=== PATIENT | female | born 2000 | race Caucasian/White ===

== ENCOUNTER 2023-12-21 13:15 | Emergency (ER) | payer OTHER, SELFPAY ==
[2023-12-21 13:22] VITALS: BP 118/72; PULSE 99; TEMP 36.7; O2SAT 99; BMI 19.8
[2023-12-21 13:25] VITALS: PULSE 92
--- NOTE | 2023-12-21 14:10 | ED.ARRPALP1 ---
HPI - Arrhythmia/Palpitations General Chief Complaint: Arrhythmia/Palpitations Stated Complaint: CHEST PAIN Time Seen by Provider: 12/21/23 14:02 Source: patient and family Mode of arrival: Wheelchair Limitations: no limitations History of Present Illness HPI narrative: This patient is here for evaluation of palpitations. She has been doing a different emergency room twice with the symptoms first visit here. She presented some of the information from her previous visit stating that they did blood test. She is and is under the care of Dr. Manning PLANT CYTOLOGIST. She is scheduled to see him on the . She has had ultrasounds during this and everything's been fine. She does not have any abdominal cramping or vaginal bleeding or obstetrical related complaints. She has no rheumatic fever or heart disease. She said that when she is a baby her mother told her she had a heart murmur but she believes she grew out of it. She has never been referred to a e marketing specialist. She showed me her smart phone and in fact she is having a very minimal arrhythmia with some what appear to be premature atrial contractions with no ventricular ectopy or malignant arrhythmia on her phone. She is otherwise been fine she has been eating and drinking she denies any excessive caffeine intake or other supplements. She is not on any cough or cold medications. She does take iron supplements at the request of her PLANT CYTOLOGIST. Patient had a CTA of her chest done at that other institution 2 days ago. It was normal Related Data Home Medications ?Medication ?Instructions ?Recorded ?Confirmed ferrous sulfate 325 mg (65 mg 325 mg PO DAILY 12/21/23 12/21/23 iron) tablet (Feosol) Allergies Allergy/AdvReac Type Severity Reaction Status Date / Time erythromycin base AdvReac Mild Verified 12/21/23 13:22 minocycline AdvReac Mild Verified 12/21/23 13:22 Exam Narrative Exam Narrative: Awake alert pleasant oriented x 3 excellent historian vital signs are stable. 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 She did show me her smart phone that showed PACs. Examination of her chest shows her lungs to be clear with no wheeze rales or rhonchi there is no respiratory distress her pulse oximetry is normal. Heart sounds are normal at several listening posts with no click rub gallop or murmur. Palpation of her neck discloses no thyromegaly or adenitis. She is gravid and we will get heart tones on her while here. Her extremities showed no evidence of peripheral edema phlebitis or edema. Constitutional Vital Signs, click to edit/add: Last Vital Signs Temp 98.1 F 12/21/23 13:22 Pulse 99 H 12/21/23 13:22 Resp 18 12/21/23 13:22 BP 118/72 12/21/23 13:22 Pulse Ox 99 12/21/23 13:22 O2 Del Method Room Air 12/21/23 13:22 Course Vital Signs Vital signs: Vital Signs Temperature 98.1 F 12/21/23 13:22 Pulse Rate 99 H 12/21/23 13:22 Respiratory Rate 18 12/21/23 13:22 Blood Pressure 118/72 12/21/23 13:22 Pulse Oximetry 99 12/21/23 13:22 Oxygen Delivery Method Room Air 12/21/23 13:22 Temperature 98.1 F 12/21/23 13:22 Pulse Rate 99 H 12/21/23 13:22 Respiratory Rate 18 12/21/23 13:22 Blood Pressure 118/72 12/21/23 13:22 Pulse Oximetry 99 12/21/23 13:22 Oxygen Delivery Method Room Air 12/21/23 13:22 MDM - Arrhythmia/Palpitations MDM Narrative Medical decision making narrative: We were able to receive the records from the other institution. It confirms that she had a CTA that was normal. Her hemoglobin was 9.3 otherwise her CBC was CBC was normal. Magnesium level was within normal limits and her TSH was also evaluated and also was normal. She showed no evidence of urinary tract infection. With these findings I do not believe is necessary to workup these benign arrhythmias any further. She was reassured advised to follow-up with her PLANT CYTOLOGIST. Discharge Plan Discharge Stand Alone Forms: Portal Instructions Chief Complaint: Arrhythmia/Palpitations Clinical Impression: Palpitations Patient Disposition: Home, Self-Care Time of Disposition Decision: 15:00 Prescriptions / Home Meds: No Action ferrous sulfate [Feosol] 325 mg (65 mg iron) tablet 325 mg PO DAILY Print Language: Telugu Additional Instructions: Follow-up with your PLANT CYTOLOGIST doctor as planned Referrals: Sunshine Maria NP [Primary Care Provider] - 1 week
--- NOTE | 2023-12-21 14:13 | ECG_ITS ---
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
== END 2023-12-21 15:22 | disposition home or self-care (01) ==
PROVIDERS: Emergency Provider Emergency Medicine Emergency Medical Services; PCP Nurse Practitioner Family
DX: R00.2 Palpitations (principal)
CPT/HCPCS: 36415; 80048; 84443; 84484; 93005; 99284

== ENCOUNTER 2025-08-11 18:08 | Emergency (ER) | payer OTHER, SELFPAY ==
--- OUTSIDE RECORDS SUMMARY | 2025-08-09 20:52 | XMS_ITS | Continuity of Care Document ---
Author Organization [facility] Address Unknown Care Team Providers Care Box Maker Name Role Phone Estrellita Roche Primary Care Physician Encounter [facility] [id number] Date(s): 08/09/25 - 08/09/25 [facility] [address] [place] [address]- Encounter Diagnosis Left wrist injury(Discharge Diagnosis) - 08/09/25 Discharge Disposition: Home (Routine DC) Attending Physician: Hima Berg DO Encounter Type: Emergency Allergies, Adverse Reactions, Alerts SubstanceCriticalitySeverityReactionReaction SeverityStatuserythromycinActive minocyclinehivesActive Treatment Plan Extracted from:Title:ED NoteAuthor:Hima Berg DODate:08/09/25 Left wrist injury (S69.92XA: Unspecified injury of left wrist, hand and finger(s), initial encounter) Orders: XR Hand 3+ Views Left XR Wrist 2 Views Left Addendum by Galen Moses DO on August 09, 2025 20:47:25 EST Patient signed out to me by Dr. Berg.?? X-ray of the left wrist was read as complete fusion of the carpal bones no acute osseous pathology??x-ray of the left hand shows??no acute osseous pathology.?? Discussed the findings with the patient and she is complaining of significant pain??she is concerned that she??did break something.?? We??did discuss the possibility of ligament injury and??bone contusion.?? She does want to have??the area splinted. ??States that she is going to follow-up with her orthopedic surgeon??for further management.?? We discussed taking Motrin Tylenol as needed for pain. ?? Splint note: A volar splint was placed??on the left??wrist and forearm extending from the??palmar aspect of the left metacarpals up to the mid forearm in a flexed position of comfort??to??match her??anatomy. ??Padding was initially applied.?? Area was wrapped with an Kendell wrap.?? Patient neurovascularly intact??prior to and after the procedure.?? Tolerated procedure well with no complications. ?? Patient agreed with plan, she was discharged home. Immunizations Given and Recorded VaccineDateStatusRefusal Reasonmeningococcal conjugate vaccine05/22/19Recorded meningococcal conjugate vaccine05/07/14Recordeddiphtheria/pertussis, acel/tetanus adult05/07/14Recordedhepatitis A pediatric vaccine05/07/14Recordedpoliovirus vaccine, inactivated05/13/07Recordedpoliovirus vaccine, inactivated02Recorded poliovirus vaccine, fortjqvarnf02Recordedpoliovirus vaccine, inactivated 02Recordedmeasles/mumps/rubella/varicella vaccine05/13/07RecordedHep A, unspecified formulation05/13/07RecordedDTaP, unspecified formulation05/13/07 RecordedDTaP, unspecified bbpyttnnmzb41/1/03RecordedDTaP, unspecified formulation02RecordedDTaP, unspecified yuinoeswbxc30/27/02RecordedDTaP, unspecified iivezkspobi00/9/02Recordedvaricella virus buosmvf12/1/03Recorded measles/mumps/rubella virus zolcqez74/1/03RecordedHib, unspecified formulation 06/13/03RecordedHib, unspecified formulation02RecordedHib, unspecified wicffqrjvgd58/27/02RecordedHib, unspecified diwagyvjkbw14/9/02Recordedhepatitis B pediatric vaccine02Recordedhepatitis B pediatric eqzwdnq59/9/02Recorded hepatitis B pediatric vaccine02Recorded Not Given VaccineDateStatusRefusal YavujwKTWA-NkH-9 mRNA (todoreeneran 5y-11y) vac06/15/23 Not GivenRefused by parent, guardian, or patient - rescheduleinfluenza virus vaccine, live, trivalent11/06/19Not GivenParent Or Guardian Refusesinfluenza virus vaccine, live, trivalent10/04/19Not GivenParent Or Guardian Refuses Medications aspirin Refills(s) 0 Start Date: 10/11/23 Status: Ordered Medication Dispense Status: Completed Total Allowed Fills: 1 Fills Dispensed: 0 ibuprofen 600 mg Tab 600 mg = 1 tab(s), Oral, q6hr, # 25 tab(s), Refills(s) 0, Pharmacy: [id number], 149.8, cm, 03/10/24 6:08:00 EDT, Height/Length Dosing, 50.9, kg, 03/10/24 6:08:00 EDT, Weight Dosing Start Date: 03/13/24 Status: Ordered Medication Dispense Status: Completed Quantity: 25.0 Unit: tab(s) Total Allowed Fills: 1 Fills Dispensed: 0 Indications: History of uterine scar from previous surgery; Multivitamins 1 tab(s), Oral, Daily, Refill(s) 0 Start Date: 10/11/23 Status: Ordered Medication Dispense Status: Completed Total Allowed Fills: 1 Fills Dispensed: 0 Slow Fe (as elemental iron) 45 mg oral tablet, extended release 45 mg = 1 tab(s), Oral, Daily, # 30 tab(s), Refills(s) 0 Start Date: 12/27/23 Status: Ordered Medication Dispense Status: Completed Quantity: 30.0 Unit: tab(s) Total Allowed Fills: 1 Fills Dispensed: 0 Problem List ConditionConfirmationCourseEffective DatesStatusHealth StatusInformant ArthrogryposisConfirmedResolvedBMI less than 19,adultConfirmedActiveLordosis deformity of spineConfirmedResolvedAMC (arthrogryposis multiplex congenita) MrptxwztqGxwayvLahttapwxWshuikwpj83/20/22 - 2ResolvedPregnancyConfirmed 11/30/22 - 01/2023ResolvedStrep pharyngitisConfirmedActiveTonsillitis with exudateConfirmedActive Procedures ProcedureDateRelated DiagnosisBody BdqfBxrxpzWfvssudsfvfpy92/11/24Completed sectionCompletedJoint surgeries/Muscle/Bone Surgeries related to medical diagnosisCompleted dose given @ 1506 02-22-24 Social History Social History TypeResponseSmoking StatusFormer smoker, quit more than 30 days ago; Smokeless tobacco use: Former vaping or e-cigarette use; Type: Vaping; Ready to change: No; Concerns about tobacco use in household: No; Smoking Cessation Yes1, 2 entered on: 08/14/24Birth SexFemaleSex RepresentationFemale (finding) 1Pt currently vaping [address] [place] [address] Discharge Instructions Patient Education 08/09/2025 20:38:01 Contusion Contusion A contusion is a deep bruise. Contusions are the result of a blunt injury to tissues and muscle fibers under the skin. The injury causes bleeding under the skin. The skin over the contusion may turn blue, purple, or yellow. Minor injuries will give you a painless contusion, but more severe injuriescause contusions that can stay painful and swollen for a few weeks. Follow these instructions at home: Pay attention to any changes in your symptoms. Let your health care provider know about them. Take these actions to relieve your pain. Managing pain, stiffness, and swelling ??? Use resting, icing, applying pressure (compression), and raising (elevating) the injured area. This is often called the RICE method. ??? Rest the injured area. Return to your normal activities as told by your health care provider. Ask your health care provider what activities are safe for you. ??? If directed, put ice on the injured area. To do this: ??? Put ice in a plastic bag. ??? Place a towel between your skin and the bag. ??? Leave the ice on for 20 minutes, 2???3 times a day. ??? If your skin turns bright red, remove the ice right away to prevent skin damage. The risk of skin damage is higher if you cannot feel pain, heat, or cold. ??? If directed, apply light compression to the injured area using an elastic bandage. Make sure the bandage is not wrapped too tightly. Remove and reapply the bandage as directed by your health careprovider. ??? If possible, elevate the injured area above the level of your heart while you are sitting or lying down. General instructions ??? Take tgmo-szz-rquuvug and prescription medicines only as told by your health care provider. ??? Keep all follow-up visits. Your health care provider may want to see how your contusion is healing with treatment. Contact a health care provider if: ??? Your symptoms do not improve after several days of treatment. ??? Your symptoms get worse. ??? You have difficulty moving the injured area. Get help right away if: ??? You have severe pain. ??? You have numbness in a hand or foot. ??? Your hand or foot turns pale or cold. This information is not intended to replace advice given to you by your health care provider. Make sure you discuss any questions you have with your health care provider. Document Revised: 02/15/2023 Document Reviewed: 02/15/2023 [employer] Patient Education ?? 2023 [employer]. Follow Up Care 08/09/2025 17:33:17 With:Estrellita Roche Address: [address] [place] [address] [facility] [place] [id number] [facility] (1) When:Within 3 Day(s) Physician Emergency department Note * Hima Berg DO: MODIFY, PERFORM Event Display: ED Note-Physician Authored Date: [id number] Basic Information Time Seen: Hima Berg DO ??08/09/2025 17:39 Chief Complaint pt reports a slip and fall, hurt l hand. ??states hands are turned inward at baseline. History of Present Illness 25 female presents emergency department with a trip and fall injuring her left wrist and hand.?? Patient states this occurred just prior to arrival. ??Patient also states that she has had prior fracture of the to this??area previously. ??She does describe some pain to the left wrist??and into the hand but nothing into the forearm elbow or the remainder of the extremity.?? No other associated??injuries or complaints.?? No other aggravating or relieving factors no other associated symptoms no other prior treatments or complaints. ?? Family: Reviewed and noncontributory Social: lives at home ?? Review of systems negative unless otherwise specified in the HPI. Physical Exam Vitals & Measurements T:??36.8?C(Oral)?? HR:??99(Peripheral)?? RR:??20?? BP:??117/76?? SpO2:??97%?? HT:??149??cm?? WT:??37.3??kg?? BMI:??16.8?? Vital Signs reviewed and noted.?? General: Alert, no acute distress, patient resting comfortably?? Skin: warm, intact, no pallor noted?? Head: Normocephalic, atraumatic?? Eye: Normal conjunctiva?? Cardiac: Normal peripheral perfusion Respiratory: No acute distress?? 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 Patient does have some generalized tenderness to palpation??along the??radial surface of the left wrist with some swelling noted here as well. ??Patient does guard against??palpation to the left wrist and the proximal portion of the hand??as well.?? There is some pain with range of motion about that joint. ??No tenderness to the remainder of theforearm elbow??or humerus. Neurological: alert and oriented, normal sensory and motor observed.?? Psychiatric: Cooperative Medical Decision Making X-rays??obtained and results are pending??stat rad read??given the complexity of the patient's underlying anatomy. ??Patient be signed out to the oncoming physician. 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 Former vaping or e- cigarette use Smokeless Tobacco Use:. Vaping, Ready to change: No. Household tobacco concerns: No. Yes, 08/14/2024 Former vaping or e-cigarette use Smokeless Tobacco Use:., 08/11/2023 Family History Alcoholism: Mother. Drug addiction: Mother and Grandparent. Suicide attempt: Grandparent. Lab Results No qualifying data available. Diagnostic Results No qualifying data available. Electronically Signed By: Hima Berg DO Date and Time Signed: 08/09/25 18:44 EST * Galen Moses DO: PERFORM Event Display: ED Note-Physician Authored Date: [id number] Patient signed out to me by Dr. Berg.?? X-ray of the left wrist was read as complete fusion of the carpal bones no acute osseous pathology??x-ray of the left hand shows??no acute osseous pathology.?? Discussed the findings with the patient and she is complaining of significant pain??she is concerned that she??did break something.?? We??did discuss the possibility of ligament injury and??bone contusion.?? She does want to have??the area splinted. ??States that she is going to follow-up with her orthopedic surgeon??for further management.?? We discussed taking Motrin Tylenol as needed for pain. ?? Splint note: A volar splint was placed??on the left??wrist and forearm extending from the??palmar aspect of the left metacarpals up to the mid forearm in a flexed position of comfort??to??match her??anatomy. ??Padding was initially applied.?? Area was wrapped with an Kendell wrap.?? Patient neurovascularly intact??prior to and after the procedure.?? Tolerated procedure well with no complications. ?? Patient agreed with plan, she was discharged home. Electronically Signed By: Galen Moses DO Date and Time Signed: 08/09/25 20:49 EST Patient Care team information Care Team Personnel Name: Nigel MCCORMICK, Cody Hoffmann [facility] Member Role: FUNDRAISING MANAGER Physician Address: [address], [facility] [address] [place], [place] [address] Telecom: Name: Estrellita Roche DO Member Role: Primary Care Physician Address: [address] [place], [place] [address] Telecom: Care Team Related Persons Name: CHELI DELEON Name: EDDIE FAITH Name: EDDIE FAITH Name: EDDIE FAITH Insurance Providers Guarantor name: AIDA Duvall [facility] Information #: 1 Payer: [facility] Payer Identifier: [id number] Member Number: [id number] Group Number: [id number] Subscriber Identifier: [id number] Relationship to Subscriber: self Coverage Type: MEDICAID Coverage Verification Date: 25 Telecom: [phone] Address: [facility] [address] [place] [id number]
[2025-08-11 18:11] VITALS: BP 114/83; PULSE 88; TEMP 37.4; O2SAT 97; BMI 18.8
--- NOTE | 2025-08-11 18:21 | XR_ITS ---
The [place] [id number] Patient Name: AIDA FAITH MRN: [id number] date: 2000 Sex: F Assigned Patient Location: ER Current Patient Location: .[facility] Accession/Order Number: [id number] Exam Date: 08/11/2025 18:30 Report Date: 08/11/2025 19:20 At the request of: NIKKIE ALVAREZ Procedure: XR hand LT min 3V XR hand LT min 3V 08/11/2025 6:45 PM SIGNS AND SYMPTOMS: ^fall, left hand injury and pain, first metacarpal PROTOCOL: Frontal, lateral, and oblique radiographs of the left hand and thumb COMPARISON: None FINDINGS: There are transversely oriented mildly displaced fractures of the base of the second and third metacarpals without intra-articular extension. Severe degenerative changes are noted throughout the carpal rows and carpometacarpal joint spaces. There is a contracture deformity of the left hand. The thumb is grossly intact. Soft tissue swelling is noted along the thumb and across the dorsum of the hand. XR/XR hand LT min 3V IMPRESSION: There are transversely oriented mildly displaced fractures of the base of the second and third metacarpals without intra-articular extension. The thumb is grossly intact. Soft tissue swelling is noted along the thumb and across the dorsum of the hand. Impression dictated by: Christoph Staley M.D. 08/11/2025 7:20 PM Dictation Location: [place] [address] Electronically authenticated by: [id number] Date: 08/11/2025 19:20
--- NOTE | 2025-08-11 18:21 | ED_ITS ---
HPI HPI - Extremity Injury (Upper) General Chief Complaint: Extremity Injury, Upper Stated Complaint: left upper extremity problem Time Seen by Provider: 08/11/25 18:09 Source: patient Mode of arrival: Wheelchair History of Present Illness HPI narrative: cc - left hand injury and pain Pt states that she fell two evenings ago and landed awkwardly and injuring her left hand. She went to [facility] and got xrays of the hand. Pt reported that they told her there is a small area which might be fractured but we don't see it anywhere else. Pt complains that the area is swollen and still hurts and I am having trouble taking care of my daughter. Pt has not taken anything at home for the pain. 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 afebrile General: Well-appearing and in no apparent distress. Skin: Warm, dry, no pallor noted. Cardiovascular: Normal peripheral perfusion. Respiratory: No accessory muscle use or respiratory distress. Musculoskeletal: Left hand = swelling noted at the left 2nd through 4th metacarpals with some tenderness noted in this area as well as along the base of the left thumb. Remainder of the left upper extremity with normal ROM, no wrist, forearm or elbow tenderness, no additional upper extremity edema/swelling Neurological: A&O x4. No cranial nerve dysfunction observed. No truncal ataxia. Moves all extremities. Sensation intact. Psychiatric: Cooperative and interactive. Normal mood and affect. Constitutional Vital Signs, click to edit/add: Last Vital Signs Temp 99.4 F 08/11/25 18:11 Pulse 88 08/11/25 18:11 Resp 18 08/11/25 18:11 BP 114/83 08/11/25 18:11 Pulse Ox 97 08/11/25 18:11 O2 Del Method Room Air 08/11/25 18:11 Course Vital Signs Vital signs: Vital Signs Temperature 99.4 F 08/11/25 18:11 Pulse Rate 88 08/11/25 18:11 Respiratory Rate 18 08/11/25 18:11 Blood Pressure 114/83 08/11/25 18:11 Pulse Oximetry 97 08/11/25 18:11 Oxygen Delivery Method Room Air 08/11/25 18:11 Temperature 99.4 F 08/11/25 18:11 Pulse Rate 88 08/11/25 18:11 Respiratory Rate 18 08/11/25 18:11 Blood Pressure 114/83 08/11/25 18:11 Pulse Oximetry 97 08/11/25 18:11 Oxygen Delivery Method Room Air 08/11/25 18:11 MDM - Extremity Injury (Upper) MDM Narrative Medical decision making narrative: X-rays of the left hand reveal fractures at the base of the 2nd and 3rd metacarpal bones. I informed the patient of this and applied an OCL splint based on the patient's neutral positioning. She was instructed to follow-up with local orthopedic group and take Motrin and Tylenol for pain. Imaging Data xr hand: Attestation: I personally reviewed and interpreted this imaging study as follows: My impression: acute fractures base left 2nd and 3rd metacarpals Discharge Plan Discharge Chief Complaint: Extremity Injury, Upper Clinical Impression: Fracture of hand Patient Disposition: Home, Self-Care Time of Disposition Decision: 18:51 Prescriptions / Home Meds: No Action ferrous sulfate [Feosol] 325 mg (65 mg iron) tablet 325 mg PO DAILY Print Language: [place] Instructions: Hand Fracture (ED) Referrals: YUMI ALEXANDER [Physician, Family Practice] - As soon as possible
--- NOTE | 2025-08-11 18:21 | PC.NURSE ---
Left hand swelling and painful
== END 2025-08-11 19:29 | disposition home or self-care (01) ==
PROVIDERS: Emergency Provider Emergency Medicine; PCP Family Medicine
DX: S62.311A Displaced fracture of base of second metacarpal bone, left hand, initial encounter for closed fracture (principal); S62.313A Displaced fracture of base of third metacarpal bone, left hand, initial encounter for closed fracture; W19.XXXA Unspecified fall, initial encounter
CPT/HCPCS: 29125; 73130; 99283